=== PATIENT | female | born 1990 | race Caucasian/White ===

== ENCOUNTER 2017-06-29 13:38 | Inpatient (IN) | payer BC, MEDICAID ==
[~2017-06-29] VITALS: Ht 160 cm; Wt 60.4 kg
[2017-06-29 13:42] VITALS: Ht 160 cm; Wt 60.4 kg
[2017-06-29 14:30] LABS: PLATELET COUNT 253 x10^3mcL (130-400)
[2017-06-29 14:33] LABS: RED CELL DISTRIBUTION WIDTH 17.1 % (11.5-14.5)
[2017-06-29 14:41] LABS: CALCIUM 8.3 mg/dL (8.5-10.1); CARBON DIOXIDE 23.5 mmol/L (21-32); CHLORIDE SERUM 104 mmol/L (98-107); CREATININE SERUM 0.8 mg/dL (0.6-1.0); GFR1 > 60 mL/min; GLUCOSE SERUM 89 mg/dL (74-106); SODIUM SERUM 139 mmol/L (136-145)
[2017-06-29 14:45] LABS: POTASSIUM SERUM 2.9 mmol/L (3.5-5.1)
[2017-06-29 15:16] LABS: MONOCYTE 4 % (0-7); SEGMENTED NEUTROPHILS 82 % (37-75)
[2017-06-29 15:17] LABS: BAND NEUTROPHIL 10 % (0-10); BASOPHIL 0 % (0-2)
[2017-06-29 15:18] LABS: PLATELET MORPHOLOGY PLATELETS NORMAL; rbc morphology (normal/abnorm) ABNORMAL (NORMAL)
[2017-06-29] MEDS ORDERED: EXCEDRIN TENSIO1 TAB PO (15:35)
[2017-06-29 15:58] VITALS: BP 98/58
[2017-06-29 16:15] VITALS: BP 98/58
[2017-06-29 16:27] LABS: T3 TOTAL 0.5 ng/mL
[2017-06-29 16:29] LABS: FREE T4 0.92 ng/dL (0.76-1.46); FREE THYROXINE INDEX 1.7 ug/dL (1.4-4.5)
[2017-06-29 16:56] LABS: MAGNESIUM 1.8 mg/dL (1.8-2.4); PHOSPHOROUS 1.8 mg/dL (2.5-4.9)
[2017-06-29 16:57] LABS: CHOLESTEROL/HDL RATIO 3.2
[2017-06-29 17:42] VITALS: BP 91/56
[2017-06-29 19:08] LABS: microscopic required? YES; urine erythrocyte 3+ (NEGATIVE)
[2017-06-29 19:17] LABS: AMPHETAMINE QUAL UR POSITIVE (NEG <=1000)
[2017-06-29 20:14] LABS: CALCIUM 7.7 mg/dL (8.5-10.1); CARBON DIOXIDE 20.2 mmol/L (21-32); CHLORIDE SERUM 109 mmol/L (98-107); CREATININE SERUM 0.8 mg/dL (0.6-1.0); GFR1 > 60 mL/min; GLUCOSE SERUM 194 mg/dL (74-106); SODIUM SERUM 141 mmol/L (136-145)
[2017-06-29 20:57] VITALS: BP 93/54
[2017-06-30 05:01] VITALS: BP 102/69
[2017-06-30 06:26] LABS: BASOPHIL % 0.4 % (0-2); PLATELET COUNT 208 x10^3mcL (130-400)
[2017-06-30 06:44] LABS: RED CELL DISTRIBUTION WIDTH 17.4 % (11.5-14.5)
[2017-06-30 06:51] LABS: CALCIUM 7.8 mg/dL (8.5-10.1); CARBON DIOXIDE 20.6 mmol/L (21-32); CHLORIDE SERUM 110 mmol/L (98-107); CREATININE SERUM 0.6 mg/dL (0.6-1.0); GFR1 > 60 mL/min; GLUCOSE SERUM 93 mg/dL (74-106); MAGNESIUM 1.8 mg/dL (1.8-2.4); PHOSPHOROUS 2.6 mg/dL (2.5-4.9); POTASSIUM SERUM 3.4 mmol/L (3.5-5.1); SODIUM SERUM 140 mmol/L (136-145)
[2017-06-30 09:40] VITALS: BP 109/70
[2017-06-30 14:40] VITALS: BP 95/57
[2017-06-30] MEDS ORDERED: ZIT250 PO (15:22)
[2017-06-30 15:24] VITALS: BP 95/57
[2017-06-30] MEDS ORDERED: LAC PO (15:24)
== END 2017-06-30 16:05 | disposition home or self-care (01) | DRG 193 ==
LOC: ED 13:38 → DU 15:03
PROVIDERS: Emergency Medicine; Family Medicine
DX: J18.9 Pneumonia, unspecified organism (principal); N17.0 Acute kidney failure with tubular necrosis; E43 Unspecified severe protein-calorie malnutrition; N39.0 Urinary tract infection, site not specified; E87.6 Hypokalemia; E83.39 Other disorders of phosphorus metabolism; R31.9 Hematuria, unspecified; F15.10 Other stimulant abuse, uncomplicated; D64.9 Anemia, unspecified; F17.210 Nicotine dependence, cigarettes, uncomplicated; Z68.21 Body mass index [BMI] 21.0-21.9, adult
CPT/HCPCS: 36600; 83880; 84439; G0480; J0456; J0696; J1885; J2765; J3480; J7030; J7613; J7620; J7644; Q0092